=== PATIENT | male | born 1960 | race Caucasian/White ===

== ENCOUNTER 2020-06-07 07:48 | Outpatient (CLI) | payer OTHER, SELFPAY ==
[2020-06-07] VITALS (7 sets, daily range): PULSE 82–99; O2SAT 84–93
--- NOTE | 2020-06-07 09:45 | HOMEO2EVAL ---
Evaluation was performed at [facility] Home Oxygen Evaluation RC: Home Oxygen (O2) Evaluation Start: 06/07/20 09:34 Freq: Status: Active Protocol: RPE Activity Type Activity Date Activity User E-Sign Co-Sign Detail Recorded Client Recorded Date Recorded By Document 06/07/20 08:35 [email or web address] [email or web address] 06/07/20 09:45 DJO Document 06/07/20 08:40 [email or web address] [email or web address] 06/07/20 09:45 DJO Document 06/07/20 08:45 [email or web address] [email or web address] 06/07/20 09:45 DJO Document 06/07/20 08:50 [email or web address] [email or web address] 06/07/20 09:45 DJO Document 06/07/20 08:55 [email or web address] [email or web address] 06/07/20 09:45 DJO Document 06/07/20 09:00 [email or web address] [email or web address] 06/07/20 09:45 DJO Document 06/07/20 09:15 [email or web address] [email or web address] 06/07/20 09:45 DJO 06/07/20 06/07/20 06/07/20 08:35 08:40 08:45 Home O2 Evaluation Test Phase Resting Exercise Exercise Oxygen Delivery Room Air Room Air Nasal Cannula Oxygen Flow Rate (L/min) 1 Pulse Oximetry (90-100 %) 93 84 L 85 L Pulse Rate (60-100 beats/min) 82 92 94 Activity Tolerance Ambulation Distance (feet) Treatment Charges O2 Evaluation - Outpatient 06/07/20 06/07/20 06/07/20 08:50 08:55 09:00 Home O2 Evaluation Test Phase Exercise Exercise Exercise Oxygen Delivery Nasal Cannula Nasal Cannula Nasal Cannula Oxygen Flow Rate (L/min) 2 3 4 Pulse Oximetry (90-100 %) 86 L 88 L 90 Pulse Rate (60-100 beats/min) 95 97 99 Activity Tolerance Good Ambulation Distance (feet) 1,000 Treatment Charges 06/07/20 09:15 Home O2 Evaluation Test Phase Resting Oxygen Delivery Room Air Oxygen Flow Rate (L/min) Pulse Oximetry (90-100 %) 92 Pulse Rate (60-100 beats/min) 84 Activity Tolerance Ambulation Distance (feet) Treatment Charges
--- NOTE | 2020-06-07 09:45 | PCRCNOTE ---
PT FAILED 6 MINUTE WALK, HOME O2 EVAL DONE.
== END 2020-06-07 07:49 | disposition home or self-care (01) ==
PROVIDERS: PCP Nurse Practitioner; Visit Provider Internal Medicine Pulmonary Disease
DX: G47.33 Obstructive sleep apnea (adult) (pediatric) (principal)
CPT/HCPCS: 94618

== ENCOUNTER 2020-08-30 08:24 | Outpatient (CLI) | payer OTHER, SELFPAY ==
[2020-08-30] VITALS (7 sets, daily range): O2SAT 86–94
--- NOTE | 2020-08-30 09:20 | HOMEO2EVAL ---
Evaluation was performed at [facility] Home Oxygen Evaluation RC: Home Oxygen (O2) Evaluation Start: 08/30/20 09:18 Freq: Status: Active Protocol: RPE Activity Type Activity Date Activity User E-Sign Co-Sign Detail Recorded Client Recorded Date Recorded By Document 08/30/20 08:30 [email or web address] 08/30/20 09:20 KEV Document 08/30/20 08:33 [email or web address] 08/30/20 09:20 KEV Document 08/30/20 08:34 [email or web address] [email or web address] 08/30/20 09:20 KEV Document 08/30/20 08:35 [email or web address] [email or web address] 08/30/20 09:20 KEV Document 08/30/20 08:36 [email or web address] [email or web address] 08/30/20 09:20 KEV Document 08/30/20 08:37 [email or web address] [email or web address] 08/30/20 09:20 KEV Document 08/30/20 08:45 [email or web address] [email or web address] 08/30/20 09:20 KEV 08/30/20 08/30/20 08/30/20 08:30 08:33 08:34 Home O2 Evaluation Test Phase Resting Exercise Exercise Oxygen Delivery Room Air Room Air Nasal Cannula Oxygen Flow Rate (L/min) 1 Pulse Oximetry (90-100 %) 94 86 L 86 L Ambulation Distance (feet) Home Oxygen Evaluation Comments Treatment Charges O2 Evaluation - Outpatient 08/30/20 08/30/20 08/30/20 08:35 08:36 08:37 Home O2 Evaluation Test Phase Exercise Exercise Exercise Oxygen Delivery Nasal Cannula Nasal Cannula Nasal Cannula Oxygen Flow Rate (L/min) 2 3 4 Pulse Oximetry (90-100 %) 87 L 87 L 90 Ambulation Distance (feet) 675 Home Oxygen Evaluation Comments Pt requires 4 L O2 with activity Treatment Charges 08/30/20 08:45 Home O2 Evaluation Test Phase Resting Oxygen Delivery Room Air Oxygen Flow Rate (L/min) Pulse Oximetry (90-100 %) 93 Ambulation Distance (feet) Home Oxygen Evaluation Comments Treatment Charges
--- NOTE | 2020-08-30 09:22 | PCRCNOTE ---
Faxed eval to office staff, verbal order received for home O2 eval
== END 2020-08-30 08:25 | disposition home or self-care (01) ==
PROVIDERS: PCP Nurse Practitioner; Visit Provider Internal Medicine Pulmonary Disease
DX: R09.02 Hypoxemia (principal)
CPT/HCPCS: 94618